=== PATIENT | female | born 1995 | race Caucasian/White ===

== ENCOUNTER 2022-01-22 12:40 | Inpatient (IN) ==
[2022-01-22] MEDS ORDERED: Naloxone 0.4 MG/ML INJ IVP PRN (14:02)
[2022-01-22] MEDS ORDERED: Ondansetron 4 MG/2 ML VIAL IVP PRN (14:02)
[2022-01-22] MEDS ORDERED: Azithromycin 500 MG in 0.9 % Sodium Chloride 250 ML IVPB PRN (14:02)
[2022-01-22] MEDS ORDERED: *HR* Nalbuphine 10 MG/ML AMPUL IV PRN (14:02)
[2022-01-22] MEDS ORDERED: Metoclopramide 10 MG/2 ML VIAL IVP PRN (14:02)
[2022-01-22] MEDS ORDERED: Lidocaine 1% 20 ML MDV INFILT PRN (14:02)
[2022-01-22] MEDS ORDERED: Famotidine 20 MG/2 ML VIAL IVP PRN (14:02)
[2022-01-22] MEDS ORDERED: EPHEDrine 50 MG/ML VIAL IVP PRN (14:14)
[2022-01-22] MEDS ORDERED: Ringers Solution, Lactated 1,000 ML IVC SCH (14:15)
[2022-01-22] MEDS ORDERED: Epidural Premix (fent/bupiv) 110 ML EP SCH (14:15)
[2022-01-22 15:09] LABS: Basophils # 0.1 K/mcL (0.0-0.2); Basophils % 0.4 %; Eosinophils # 0.3 K/mcL (0.0-0.6); Eosinophils % 2.2 %; Hematocrit 33.9 % (35.3-44.9); Hemoglobin 11.6 g/dL (11.5-15.4); Immature Granulocytes % 0.8 % (0-4); Lymphocytes # 1.8 K/mcL (0.6-4.6); Lymphocytes % 15.4 %; Mean Corpuscular HGB Conc 34.2 g/dL (31.6-35.5); Mean Corpuscular Hemoglobin 28.4 pg (28.0-33.3); Mean Corpuscular Volume 82.9 fL (83.0-100.0); Monocytes # 0.5 K/mcL (0.0-1.3); Monocytes % 4.7 %; Neutrophils # 8.8 K/mcL (1.6-8.9); Platelet Count 196 K/mcL (140-400); Red Blood Count 4.09 M/mcL (3.82-4.97); Red Cell Distribution Width 13.2 % (11.5-14.5); Segmented Neutrophils % 76.5 %; White Blood Count 11.5 K/mcL (4.3-11.1)
[2022-01-22 15:10] LABS: Candida DNA DETECTED (Not Detect); Gardnerella DNA Not Detected (Not Detect); Trichomonas DNA Not Detected (Not Detect)
[2022-01-22 15:29] LABS: Alanine Aminotransferase 13 Units/L (7-52); Aspartate Amino Transferase 16 Units/L (13-39); BUN/Creatinine Ratio 14 (6-26); Blood Urea Nitrogen 8 mg/dL (6-20); Lactate Dehydrogenase 149 Units/L (140-271); Uric Acid 5.2 mg/dL (2.3-7.6); eGFR For African Americans > 60 (> 60); eGFR For Non-African Americans > 60 (> 60)
[2022-01-22 15:42] LABS: Amphetamine Screen,Urine Negative ng/mL (Cutoff=1000); Barbiturate Screen,Urine Negative ng/mL (Cutoff=200); Benzodiazepines Screen,Urine Negative ng/mL (Cutoff=200); Cannabinoid Screen,Urine Negative ng/mL (Cutoff = 50); Cocaine Screen,Urine Negative ng/mL (Cutoff= 300); Creatinine,Urine 51 mg/dL; Opiate Screen,Urine Negative ng/mL (Cutoff=300); Phencyclidine Screen,Urine Negative ng/mL (Cutoff=25); Protein/Creatinine Ratio,Urine 0.12 mg/mg (0.00-0.20)
[2022-01-22] MEDS: miSOPROStoL 25 MCG TABLET PO PRN ×2 (15:50→21:13)
[2022-01-22] MEDS ORDERED: Budesonide/Formoterol 80/4.5 1 PUFF INH IH SCH (22:00)
[2022-01-22] MEDS ORDERED: Oxytocin 30 UNIT/503 ML BAG IVC SCH (23:00)
[2022-01-23] MEDS ORDERED: *HR* Oxytocin 10 UNIT/ML VIAL ONE (10:57)
[2022-01-23] MEDS ORDERED: Acetaminophen IV 1,000 MG/100 ML BAG IVPB ONE (11:04)
[2022-01-23] MEDS ORDERED: Chloroprocaine 3%/PF 20 ML VIAL INFILT ONE (11:17)
[2022-01-23] MEDS ORDERED: *HR* Morphine Sulfate/PF 10 MG/10 ML AMPUL ONE (11:18)
[2022-01-23] MEDS ORDERED: Ketorolac 30 MG/ML VIAL ONE (11:29)
[2022-01-23] MEDS ORDERED: *HR* FentaNYL (PF) 100 MCG/2 ML VIAL IVP PRN (12:52)
[2022-01-23] MEDS ORDERED: Oxytocin 30 UNIT/503 ML BAG IVC SCH (14:56)
[2022-01-23] MEDS ORDERED: Simethicone 80 MG TAB.CHEW PO PRN (14:56)
[2022-01-23] MEDS ORDERED: Ringers Solution, Lactated 1,000 ML IVC SCH (14:56)
[2022-01-23] MEDS ORDERED: Ondansetron 4 MG/2 ML VIAL IVP PRN (14:56)
[2022-01-23] MEDS ORDERED: Metoclopramide 10 MG/2 ML VIAL IVP PRN (14:56)
[2022-01-23] MEDS ORDERED: Rho Immune Globulin 1,500 UNIT SYRINGE IM ONE (14:56)
[2022-01-23] MEDS: cephALEXin 500 MG CAPSULE PO SCH ×2 (20:07→21:59)
[2022-01-23] MEDS: metroNIDAZOLE 500 MG TABLET PO SCH ×2 (20:07→21:58)
[2022-01-23] MEDS: Acetaminophen 325 MG TABLET PO SCH ×2 (20:08→22:00)
[2022-01-23] MEDS: Ibuprofen 600 MG TABLET PO SCH ×2 (20:08→21:59)
[2022-01-24] MEDS: *HR* OxyCODONE Immed Rel 5 MG TABLET PO PRN ×4 (04:05→22:21)
[2022-01-24] MEDS: Ibuprofen 600 MG TABLET PO SCH ×4 (05:30→22:23)
[2022-01-24] MEDS: Acetaminophen 325 MG TABLET PO SCH ×4 (05:30→22:23)
[2022-01-24 05:48] LABS: Basophils % 0.2 %; Eosinophils # 0.1 K/mcL (0.0-0.6); Eosinophils % 1.1 %; Hematocrit 28.7 % (35.3-44.9); Immature Granulocytes % 0.3 % (0-4); Lymphocytes # 1.3 K/mcL (0.6-4.6); Mean Corpuscular HGB Conc 33.1 g/dL (31.6-35.5); Mean Corpuscular Volume 84.7 fL (83.0-100.0); Mean Platelet Volume 12.3 fL (9.4-12.4); Monocytes # 0.6 K/mcL (0.0-1.3); Monocytes % 5.4 %; Neutrophils # 9.8 K/mcL (1.6-8.9); Platelet Count 161 K/mcL (140-400); Red Blood Count 3.39 M/mcL (3.82-4.97); Red Cell Distribution Width 13.2 % (11.5-14.5)
[2022-01-24 05:49] LABS: Hemoglobin 9.5 g/dL (11.5-15.4)
[2022-01-24] MEDS ORDERED: Fluconazole 150 MG TABLET PO ONE (09:00)
[2022-01-24] MEDS: Prenatal Vit/FA 1 EACH TABLET PO SCH (09:04)
[2022-01-24] MEDS: cephALEXin 500 MG CAPSULE PO SCH ×3 (09:04→22:22)
[2022-01-24] MEDS: metroNIDAZOLE 500 MG TABLET PO SCH ×3 (09:04→22:22)
[2022-01-24 19:36] VITALS: O2SAT 96
[2022-01-25] MEDS: Acetaminophen 325 MG TABLET PO SCH (04:37)
[2022-01-25] MEDS: *HR* OxyCODONE Immed Rel 5 MG TABLET PO PRN (04:38)
[2022-01-25 07:13] VITALS: BP 117/72; PULSE 92; TEMP 98.5
[2022-01-25] MEDS: cephALEXin 500 MG CAPSULE PO SCH (08:36)
[2022-01-25] MEDS: Prenatal Vit/FA 1 EACH TABLET PO SCH (08:36)
[2022-01-25] MEDS: metroNIDAZOLE 500 MG TABLET PO SCH (08:36)
== END 2022-01-25 12:49 | disposition home or self-care (01) | DRG 540 ==
LOC: 1NENULAB → 1NENUOBS 01-23 14:11
PROVIDERS: ADMIT Advanced Practice Midwife; ATTEND Advanced Practice Midwife